=== PATIENT | female | born 1945 | race Caucasian/White ===

== ENCOUNTER 2020-02-29 17:23 | Emergency (ER) | payer MEDICARE, OTHER, SELFPAY ==
--- NOTE | ~2020-02-29 | XR_ITS ---
EXAMINATION: XR finger 1st RT min 2V INDICATION: Right first finger pain TECHNIQUE: Three views of the right first finger are obtained. COMPARISON: None available FINDINGS: There is a small heterotopic ossification at the palmar base of the first distal phalanx. T his appears to be well-corticated. 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 The soft tissues are unremarkable. IMPRESSION: 1. Small heterotopic ossification at the palmar base of the first distal phalanx which appears well-c orticated and could reflect prior injury or sesamoid. Recommend correlation for tenderness at this si te to exclude acute injury. Reviewed, dictated and finalized at location A. UCTION UNDERWRITER IMPRESSION: 1. Small heterotopic ossification at the palmar base of the first distal phalan x which appears well-corticated and could reflect prior injury or sesamoid. Rec ommend correlation for tenderness at this site to exclude acute injury.
--- NOTE | ~2020-02-29 | CT_ITS ---
EXAMINATION: CT facial bones wo con DATE: 02/29/2020 18:04 INDICATION: Facial pain after fall TECHNIQUE: Computed tomography (CT) of the facial bones and maxillofacial region was performed withou t intravenous contrast. The dose-length product (DLP) was 462.48 mGy-cm. Automated exposure control a nd iterative reconstruction technique were employed. COMPARISON: None. FINDINGS: There is left facial soft tissue swelling. There appears to be a subtle fracture of the lef t nasal bone. No additional facial bone fracture is identified. There is minimal opacification of the left sphenoid sinus. The paranasal sinuses are otherwise clear. There is mild to moderate spondylosi s of the visualized cervical spine. IMPRESSION: 1. Left facial soft tissue swelling with likely subtle left nasal bone fracture. Reviewed, dictated and finalized at location A. LATORY LEADER IMPRESSION: 1. Left facial soft tissue swelling with likely subtle left nasal bone fracture .
[2020-02-29 17:24] VITALS: BP 162/103; PULSE 87; RESP 20; TEMP 36.4; O2SAT 99
[2020-02-29] MEDS: HYDROcodone/acetaminophen (*CRX) 5-325 MG TABLET 1 TAB PO (19:03)
--- NOTE | 2020-02-29 19:21 | ED.FALL ---
HPI - Fall General Chief Complaint: Fall Stated Complaint: fell down steps Time Seen by Provider: 02/29/20 17:31 History of Present Illness HPI Narrative: Patient is a 74-year-old female who presents the ER after a fall down a couple stairs. She stepped on a jacket that was on the stair and fell forward striking her hand and face and knee on different parts of the wall/ground/stepstool. She did not lose consciousness. She did strike her left face no swelling about the nasal bridge. She has no difficulty breathing through her nose or difficulty swallowing/seeing. Patient also has some bruising discomfort to the right thumb. She maintains range of motion and sensation. Lastly she has contusion over her right knee. She has been able to ambulate. She is not on blood thinners. Related Data Home Medications Medication Instructions Recorded Confirmed alprazolam 02/29/20 amlodipine 02/29/20 aspirin 81 mg PO DAILY 02/29/20 atorvastatin 02/29/20 cholecalciferol (vitamin D3) 50 mcg PO DAILY 02/29/20 [Vitamin D3] clopidogrel 02/29/20 exemestane mg 02/29/20 hydrochlorothiazide 02/29/20 isosorbide mononitrate mg PO 02/29/20 losartan 02/29/20 magnesium 250 mg PO DAILY 02/29/20 melatonin 10 mg PO HS PRN 02/29/20 metoprolol succinate PO 02/29/20 montelukast mg 02/29/20 multivit with min-folic acid tablet PO 02/29/20 [One-[employer]-Day [employer]] pantoprazole PO 02/29/20 tramadol mg 02/29/20 venlafaxine mg PO 02/29/20 Allergies Allergy/AdvReac Type Severity Reaction Status Date / Time atenolol Allergy Unknown Unknown Verified 02/29/20 17:35 bupropion Allergy Unknown Unknown Verified 02/29/20 17:35 cephalexin [From Keflex] Allergy Difficulty Verified 02/29/20 17:35 Breathing adhesive tape AdvReac Unknown REDNESS, Verified 02/29/20 17:35 RASH, IRRITATION naproxen AdvReac Unknown SWELLING Verified 02/29/20 17:35 AT ANKLES Review of Systems ENT: Comments: Nasal tenderness Musculoskeletal: Musculoskeletal: Denies back pain, Reports myalgias and Reports arthralgias Neurologic: Denies syncope, Denies focal weakness and Denies numbness PMFSH Past Medical History Medical History (Updated 02/29/20 @ 19:28 by Fredi Echeverria MD) Anxiety GERD (gastroesophageal reflux disease) Hyperlipidemia Hypertension Surgical History Surgical History (Updated 02/29/20 @ 19:23 by Fredi Echeverria MD) History of total right knee replacement Family History Family History (Updated 10/20/16 @ 11:45 by DOCTOR UNKNOWN) Other Family history of arthritis Family history of malignant neoplasm Hypertension Social History Social History Smoking status: Never smoker Alcohol intake: current Exam Narrative: Exam Narrative: GENERAL: Well-appearing, well-nourished, and in no acute distress. HEAD: Normocephalic, atraumatic. EYES: PERRL and EOMI. ENT: Mucous membranes moist. Swelling left lower lip from biting it. Swelling over the left nasal bridge and left infraorbital region. CHEST: Clear to auscultation. No respiratory distress. HEART: Regular rate and rhythm. Normal peripheral pulses. EXTREMITIES: Normal range of motion. No edema. Contusion anterior right right knee. Bruising over the thenar eminence of the right thumb with tenderness at the first MCP and digit. Range of motion intact. SKIN: Warm, dry, no rash. NEURO: Alert and oriented x3. Course Course Emergency Course: Patient placed in a thumb spica splint by body technician. Recommend follow-up with PCP for repeat x-rays. Discharge home. Vital Signs Vital signs: Vital Signs Temperature 97.5 F L 02/29/20 17:24 Pulse Rate 87 02/29/20 17:24 Respiratory Rate 20 02/29/20 17:24 Blood Pressure 162/103 H 02/29/20 17:24 Pulse Oximetry 99 02/29/20 17:24 Temperature 97.5 F L 02/29/20 17:24 Pulse Rate 87 02/29/20 17:24 Respiratory Rate 20 02/29/20 17:24 Blood Pressure 162/103 H 02/29/20 17:
[2020-02-29 19:48] VITALS: BP 140/99; PULSE 85; RESP 20; O2SAT 99
== END 2020-02-29 19:50 | disposition home or self-care (01) ==
PROVIDERS: Emergency Provider Emergency Medicine; PCP Family Medicine
DX: S02.2XXA Fracture of nasal bones, initial encounter for closed fracture (principal); S63.601A Unspecified sprain of right thumb, initial encounter; F41.9 Anxiety disorder, unspecified; K21.9 Gastro-esophageal reflux disease without esophagitis; E78.5 Hyperlipidemia, unspecified; I10 Essential (primary) hypertension; Z79.82 Long term (current) use of aspirin; Z96.651 Presence of right artificial knee joint; W10.9XXA Fall (on) (from) unspecified stairs and steps, initial encounter
CPT/HCPCS: 29125; 70486; 73140; 99284; A9270

== ENCOUNTER 2022-07-13 17:33 | Outpatient (CLI) | payer MEDICARE, OTHER, SELFPAY ==
[2022-07-13 18:32] LABS: Influenza A QL RT-PCR Negative (Negative); Influenza B QL RT-PCR Negative (Negative); RSV RNA, RT-PCR Negative (Negative); SARS-CoV-2 RNA PCR Negative
== END 2022-07-13 17:34 | disposition home or self-care (01) ==
LOC: ANHLAB 17:37
PROVIDERS: PCP Family Medicine; Visit Provider Internal Medicine Pulmonary Disease
DX: R05.9 Cough, unspecified (principal); Z20.822 Contact with and (suspected) exposure to COVID-19
CPT/HCPCS: 87637